=== PATIENT | male | born 1960 | race Caucasian/White ===

== ENCOUNTER 2020-08-19 07:00 | Outpatient (CLI) | payer MEDICAID | END 2020-08-19 23:59 | disposition home or self-care (01) | LOC: LAB.R 07:00 | PROVIDERS: ATTEND Family Medicine Adult Medicine | DX: R19.5 Other fecal abnormalities (principal) | CPT/HCPCS: 81599; 87045; 87046; 87177; 87209; 87329; 87427 ==

== ENCOUNTER 2020-08-25 14:57 | Outpatient (CLI) | payer MEDICAID ==
[2020-08-25 15:22] LABS: ALBUMIN 4.2 g/dL (3.2-5.5); ALBUMIN/GLOBULIN RATIO 1.5 (1.0-2.2); BILIRUBIN,TOTAL 0.7 mg/dL (0.2-1.0); CALCIUM 9.3 mg/dL (8.5-10.3); CREATININE 0.9 mg/dL (0.6-1.2)
== END 2020-08-25 14:58 | disposition home or self-care (01) ==
LOC: LAB 14:57
PROVIDERS: ATTEND Family Medicine Adult Medicine
DX: R19.5 Other fecal abnormalities (principal)
CPT/HCPCS: 36415; 80053; 83690